=== PATIENT | male | born 1975 | race Hispanic/Latino ===

== ENCOUNTER 2019-11-20 03:21 | Emergency (ER) | payer SELFPAY ==
[2019-11-20 04:13] LABS: HEMATOCRIT 39.6 % (39.0-50.0); HEMOGLOBIN 13.4 g/dl (14.0-18.0); IMMATURE GRANULOCYTES 0.4 % (0.0-5.0); MEAN CORPUSCULAR HGB 29.5 pG CALC (26.0-32.0); MEAN CORPUSCULAR HGB CONC 33.8 g/dL CAL (32.0-36.0); NEUT# 3.1 thou/uL (1.82-7.42); RED BLOOD COUNT 4.55 mill/uL (4.70-6.10); RED CELL DISTRI WIDTH 12.6 % (11.5-15.5)
[2019-11-20 04:28] LABS: ALBUMIN 4.1 g/dL (3.2-5.0); ALKALINE PHOSPHATASE 79 u/l (38-126); ANION GAP 11 (6-22 (CALC)); BILIRUBIN, TOTAL 0.3 mg/dL (0.0-1.4); BUN 9 mg/dL (9-20); BUN/CREATININE RATIO 14 (12-20 (CALC)); C-REACTIVE PROTEIN 2.5 mg/dL (0-0.9); CARBON DIOXIDE 27 mmol/l (22-30); CHLORIDE 104 mmol/l (95-108); CREATININE 0.7 mg/dL (0.7-1.3); GFR > 60 ML/MIN (>=60 (CALC)); GFR FOR AFR.AMER. > 60 ML/MIN (>=60 (CALC)); MAGNESIUM 2.1 mg/dL (1.6-2.3); POTASSIUM 3.8 mmol/l (3.5-5.1); SGOT/AST 53 u/l (17-59); SODIUM 138 mmol/l (137-146); TOTAL PROTEIN 7.2 g/dL (6.3-8.2)
[2019-11-20 04:37] LABS: MYOGLOBIN 34 ng/mL (0 - 121)
[2019-11-20 04:39] LABS: ACT PARTIAL THROMBO TIME 28.3 SECONDS (20.0-32.5); INTERNATIONAL NORMALIZED RATIO 0.9 RATIO (0.7-1.3); PROTHROMBIN TIME 9.3 SECONDS (9.0-12.5)
[2019-11-20 04:51] LABS: D-DIMER 0.29 mg/L (0.19-0.60)
[2019-11-20 05:26] LABS: URINE BILIRUBIN - DIPSTICK NEGATIVE (NEGATIVE); URINE BLOOD DIPSTICK TRACE-INTACT (NEGATIVE); URINE COLOR YELLOW; URINE GLUCOSE - DIPSTICK NEGATIVE (NEGATIVE); URINE KETONE NEGATIVE (NEGATIVE); URINE LEUK ESTERASE NEGATIVE (NEGATIVE); URINE NITRITE - DIPSTICK NEGATIVE (Negative); URINE PROTEIN - DIPSTICK NEGATIVE (NEG-TRACE); URINE SPECIFIC GRAVITY 1.015; URINE UROBILINOGEN - DIPSTICK 0.2 E.U./dL (0.2)
[2019-11-20] MEDS ORDERED: TESSALON PER100 MG PO (05:38)
[2019-11-20 05:55] VITALS: BP 117/70
--- NOTE | 2019-11-23 11:14 | NUR ---
Notified patient of positive Covid results via Nellie Tolentino stationary engineer apprentice. Advised patient to quarantine until contacted by [facility] with further instructions. Advised patient to retuen to ED with any difficulty breathing or other issues. patient verbalized understanding.
== END 2019-11-20 05:55 | disposition home or self-care (01) | DRG 179 ==
LOC: ED 03:21
PROVIDERS: Family Medicine
DX: U07.1 COVID-19 (principal)

== ENCOUNTER 2019-12-12 14:01 | Emergency (ER) | payer SELFPAY ==
[~2019-12-12] VITALS: Ht 167.6 cm; Wt 75.0 kg
[~2019-12-12 14:01] MED LIST: TESSALON PER100 MG PO
[2019-12-12] MEDS ORDERED: VENTOLIN HFA IN (15:29)
[2019-12-12] MEDS ORDERED: ROBITUSSIN AC10 ML PO (15:29)
[2019-12-12 15:35] VITALS: BP 136/80
== END 2019-12-12 15:36 | disposition home or self-care (01) | DRG 179 ==
LOC: ED 14:01
DX: U07.1 COVID-19 (principal)